=== PATIENT | female | born 2000 | race American Indian/Alaskan Native ===

== ENCOUNTER 2020-11-07 19:07 | Emergency (ER) | payer OTHER ==
[2020-11-07] MEDS ORDERED: ONDANSETRON 4 MG ODT TAB PO ONE (19:42)
--- NOTE | 2020-11-07 19:44 | Emergency Department Report ---
Blank Doc - Documentation Documentation: 20 y/o female 2 days s/p drinking and developed nausea and vomiting
[2020-11-07 20:05] LABS: Basophils # (Auto) 0.1 K/mm3 (0.0-0.1); Basophils % (Auto) 0.4 % (0.0-1.8); Hematocrit 43.2 % (30.3-42.9); Hemoglobin 14.6 gm/dl (10.1-14.3); Lymphocytes # (Auto) 1.8 K/mm3 (1.2-5.4); Lymphocytes % (Auto) 12.4 % (13.4-35.0); Mean Corpuscular HGB Conc 34 % (30-34); Mean Corpuscular Volume 92 fl (79-97); Monocytes # (Auto) 0.8 K/mm3 (0.0-0.8); Monocytes % (Auto) 5.6 % (0.0-7.3); Platelet Count 247 K/mm3 (140-440); Red Blood Count 4.72 M/mm3 (3.65-5.03); Red Cell Distribution Width 12.9 % (13.2-15.2)
[2020-11-07 20:24] LABS: Alanine Aminotransferase 37 units/L (7-56); Albumin 5.4 g/dL (3.9-5); BUN/Creatinine Ratio 20; Blood Urea Nitrogen 18 mg/dL (7-17); Calcium 10.2 mg/dL (8.4-10.2); Hemolysis Index 6
[2020-11-07] MEDS ORDERED: ALUM-MAG HYDROXIDE-SIMETHICONE 200-200-20MG/5ML ORAL LIQD 30 ML PO ONE (21:23)
[2020-11-07] MEDS ORDERED: LIDOCAINE VISCOUS 2% 15 ML ORAL LIQD PO ONE (21:23)
[2020-11-07] MEDS ORDERED: SODIUM CHLORIDE 0.9% 1000 ML 1,000 ML IV ONE (21:23)
[2020-11-07] MEDS ORDERED: POTASSIUM CHLORIDE ER 20 MEQ TAB PO ONE (21:24)
--- NOTE | 2020-11-07 21:28 | Emergency Department Report ---
ED N/V/D HPI - General Chief complaint: Chest Pain Stated complaint: VOMITING/CHEST PAIN Time Seen by Provider: 11/07/20 21:10 Source: patient Mode of arrival: Ambulatory Limitations: No Limitations - History of Present Illness Initial comments: 20-year-old female presents to ED with nausea vomiting. Patient states she was binge drinking 2 days ago, by herself. States she drank an entire bottle of wine plus an additional 8 shots of alcohol. When asked why she drank so much alcohol, patient states, "Because I wanted to." Patient denies drinking on a daily basis. She denies binge drinking often. Patient states since then, she has been having nausea and vomiting, unable to keep anything down. She reports abdominal and chest pain as well. Patient states when she last vomited she saw some small streaks of blood in her emesis. MD complaint: nausea, vomiting, abdominal pain -: days(s) (2) Description of Vomiting: food contents, blood-streaked Associated Abdominal Pain: Yes Location: epigastric Radiation: none Severity: mild Quality: cramping Consistency: intermittent Improves with: none Worsens with: none Context: alcohol abuse Associated Symptoms: chest pain, nausea/vomiting. denies: fever/chills, shortness of breath - Related Data Previous Rx's Medication Instructions Recorded Last Taken Type Dicyclomine [Bentyl] 20 mg PO QID PRN #20 tablet 11/08/20 Unknown Rx Ondansetron [Zofran Odt] 4 mg PO Q8HR PRN #20 tab.rapdis 11/08/20 Unknown Rx Pantoprazole [Protonix TAB] 20 mg PO QDAY #30 tablet. 11/08/20 Unknown Rx Allergies Allergy/AdvReac Type Severity Reaction Status Date / Time No Known Allergies Allergy Unverified 11/07/20 19:34 ED Review of Systems ROS: Stated complaint: VOMITING/CHEST PAIN Other details as noted in HPI Comment: All other systems reviewed and negative Constitutional: denies: chills, fever Respiratory: denies: shortness of breath Cardiovascular: chest pain Gastrointestinal: abdominal pain, nausea, vomiting ED Past Medical Hx - Past Medical History Previous Medical History?: No - Surgical History Past Surgical History?: No - Medications Home Medications: Home Medications Medication Instructions Recorded Confirmed Last Taken Type Dicyclomine [Bentyl] 20 mg PO QID PRN #20 tablet 11/08/20 Unknown Rx Ondansetron [Zofran Odt] 4 mg PO Q8HR PRN #20 tab.rapdis 11/08/20 Unknown Rx Pantoprazole [Protonix TAB] 20 mg PO QDAY #30 tablet. 11/08/20 Unknown Rx ED Physical Exam - General Limitations: No Limitations General appearance: alert, in no apparent distress - Head Head exam: Present: atraumatic, normocephalic - Eye Eye exam: Present: normal appearance, EOMI - ENT ENT exam: Present: mucous membranes moist - Neck Neck exam: Present: normal inspection - Respiratory Respiratory exam: Present: normal lung sounds bilaterally. Absent: respiratory distress - Cardiovascular Cardiovascular Exam: Present: normal rhythm, bradycardia - GI/Abdominal GI/Abdominal exam: Present: soft. Absent: distended, tenderness - Extremities Exam Extremities exam: Present: normal inspection - Neurological Exam Neurological exam: Present: alert, oriented X3 - Psychiatric Psychiatric exam: Present: normal affect, normal mood - Skin Skin exam: Present: warm, dry, intact, normal color ED Course Vital Signs 11/07/20 11/07/20 11/07/20 19:21 21:17 21:22 Temperature 98.9 F 98.6 F Pulse Rate 58 L 109 H 55 L Respiratory 16 10 L 14 Rate Blood Pressure 142/75 Blood Pressure 144/38 [Right] O2 Sat by Pulse 100 98 Oximetry 11/07/20 11/07/20 11/07/20 21:31 22:19 22:31 Temperature Pulse Rate 52 L 50 L Respiratory 15 12 Rate Blood Pressure 122/38 122/38 122/38 Blood Pressure [Right] O2 Sat by Pulse 98 100 100 Oximetry 11/07/20 11/07/20 11/07/20 22:45 23:01 23:15 Temperature Pulse Rate 51 L 49 L Respiratory 15 17 Rate Blood Pressure 122/38 122/38 127/75 Blood Pressure [Right] O2 Sat by Pulse 100 100 98 Oximetry 11/07/20 11/07/20 11/08/20 23:31 23:45 00:01 Temperature Pulse Rate 51 L 52 L 49 L Respiratory 17 18 18 Rate Blood Pressure 127/75 127/75 127/75 Blood Pressure [Right] O2 Sat by Pulse 99 99 99 Oximetry 11/08/20 11/08/20 11/08/20 00:15 00:31 00:46 Temperature Pulse Rate 49 L 53 L Respiratory 18 10 L 14 Rate Blood Pressure 127/75 124/65 Blood Pressure [Right] O2 Sat by Pulse 98 88 Oximetry ED Medical Decision Making - Lab Data Result diagrams: 11/07/20 19:49 11/07/20 19:49 - EKG Data EKG shows normal: sinus rhythm, axis, ST-T waves Rate: bradycardia (rate 57) - EKG Data Interpretation: other (prolonged QT, incomplete RBBB and LAFB; multiple PVCs) - Radiology Data Radiology results: report reviewed, image reviewed - Medical Decision Making 20-year-old female with likely gastritis after binge drinking 3 days ago. Acute abdominal series is negative for any free air or other abnormal findings. Labs show hypokalemia with potassium of 3.1. This has been replaced with p.o. potassium. Renal function is normal. Patient given 1 L bolus of IV fluids along with Zofran and GI cocktail. No emesis here in the ED. Vital signs are stable. EKG shows no ST changes. Troponin is negative. Patient will be discharged at this time. Patient counseled on binge drinking. Prescriptions given, outpatient follow-up advised, return precautions given. - Differential Diagnosis Gastritis, pancreatitis, ACS, perforated bowel Critical care attestation.: If time is entered above; I have spent that time in minutes in the direct care of this critically ill patient, excluding procedure time. ED Disposition Clinical Impression: Gastritis Disposition: DC-01 TO HOME OR SELFCARE Is pt being admited?: No Condition: Stable Instructions: Gastritis, Adult, [id number], Binge-Drinking Information, Adult Prescriptions: Dicyclomine [Bentyl] 20 mg PO QID PRN #20 tablet PRN Reason: abdominal pain Pantoprazole [Protonix TAB] 20 mg PO QDAY #30 tablet. Ondansetron [Zofran Odt] 4 mg PO Q8HR PRN #20 tab.rapdis PRN Reason: Vomiting Referrals: PRIMARY CARE, [Primary Care Provider] - 3-5 Days [facility] [Provider Group] - 3-5 Days [facility] [Provider Group] - 3-5 Days
--- NOTE | 2020-11-07 22:04 | XRay Report ---
ABDOMEN 3 VIEW(S) INDICATION / CLINICAL INFORMATION: abd pain, vomiting. COMPARISON: None available. FINDINGS: TUBES / LINES: None. BOWEL GAS PATTERN: No significant abnormality. FREE AIR / EXTRALUMINAL GAS: None seen. ADDITIONAL FINDINGS: No significant additional findings. CHEST: Visualized chest shows no significant abnormality. IMPRESSION: 1. No significant abnormality. Signer Name: Jani Caldwell MD Signed: 11/07/2020 9:59 PM Workstation Name: [id number]
[2020-11-08 00:44] VITALS: BP 124/65
== END 2020-11-08 00:46 | disposition home or self-care (01) ==
LOC: ED 19:07
DX: K29.70 Gastritis, unspecified, without bleeding (principal); Z79.899 Other long term (current) drug therapy
CPT/HCPCS: 36415; 74022; 80053; 83690; 84703; 85025; 93005; 96360; 99284; J7030; Q0162